=== PATIENT | female | born 1965 | race Caucasian/White ===

== ENCOUNTER 2017-09-23 07:03 | Emergency (ER) | payer MEDICARE, MEDICAID ==
[~2017-09-23] VITALS: Ht 170.2 cm; Wt 82.0 kg
[2017-09-23 16:01] LABS: BASOPHILS % 0.4 % (0.0-2.0); EOSINOPHILS % 0.6 % (0.0-5.0); HEMATOCRIT. 38.3 % (36.0-48.0); HEMOGLOBIN. 13.2 g/dL (12.0-16.0); LYMPHOCYTES % 23.9 % (20.0-50.0); MEAN CORPUSCULAR HEMOGLOBIN 28.6 pg (28.0-32.0); MEAN CORPUSCULAR VOLUME 83.1 fL (81.0-99.0); MEAN PLATELET VOLUME 7.6 fl (7.4-10.4); MONOCYTES % 8.2 % (2.0-8.0); NEUTROPHILS % 66.9 % (40.0-76.0); PLATELET 363 x1000/uL (130-400); RED BLOOD CELL COUNT 4.61 mill/uL (4.2-5.4); RED CELL DISTRIBUTION WIDTH 14.5 % (11.6-14.6)
[2017-09-23 16:09] LABS: CHLORIDE 103 mEq/L (98-107); ETHANOL BLOOD < 10 mg/dL
[2017-09-23] MEDS ORDERED: KETOROLAC 60MG/2ML VIAL IM STA (16:50)
[2017-09-23] MEDS ORDERED: LORAZEPAM 1MG TABLET PO ONE (17:00)
[2017-09-23] MEDS ORDERED: POTASSIUM CHLORIDE 20MEQ TABLET SR PO ONE (17:00)
[2017-09-23 17:35] LABS: CLARITY URINE CLOUDY (CLEAR); COLOR URINE DARK YELLOW (YELLOW); KETONES URINE 3+ (NEGATIVE); LEUKOCYTE ESTERASE URINE TRACE (NEGATIVE); NITRITE URINE NEGATIVE (NEGATIVE); OCCULT BLOOD URINE 1+ (NEGATIVE); PROTEIN URINE 1+ (NEGATIVE)
[2017-09-23 17:52] LABS: *AMPHETAMINES SCREEN URINE PRESUMTIVE POSITIVE (NEGATIVE); *BARBITURATES SCREEN URINE NEGATIVE (NEGATIVE); *BENZODIAZEPINES SCREEN URINE PRESUMTIVE POSITIVE (NEGATIVE); *COCAINE SCREEN URINE NEGATIVE (NEGATIVE); CANNABINOID URINE SCREEN NEGATIVE (NEGATIVE); METHADONE URINE SCREEN NEGATIVE (NEGATIVE); OPIATES URINE SCREEN NEGATIVE (NEGATIVE); PHENCYCLIDINE URINE SCREEN NEGATIVE (NEGATIVE)
[2017-09-23] MEDS ORDERED: LIDOCAINE HCL 1% 20ML VIAL (Pyxis) INJ INFIL ONE (19:00)
[2017-09-23] MEDS ORDERED: CEFTRIAXONE SODIUM 1 G/VIAL IM ONE (19:00)
[2017-09-23] MEDS ORDERED: HYDROCODONE/APAP 7.5/325MG 1 TAB TABLET PO ONE (20:00)
[2017-09-23] MEDS ORDERED: ACETAMINOPHEN 325MG TABLET PO STA (22:26)
[2017-09-23 22:36] VITALS: BP 15/92
== END 2017-09-23 22:37 | disposition home or self-care (01) ==
LOC: ER 07:17
DX: E87.6 Hypokalemia (principal); C90.00 Multiple myeloma not having achieved remission; I10 Essential (primary) hypertension; N39.0 Urinary tract infection, site not specified; M60.9 Myositis, unspecified; M79.7 Fibromyalgia; F41.9 Anxiety disorder, unspecified
CPT/HCPCS: 36415; 71045; 80048; 80305; 80307; 80329; 81003; 81025; 84484; 85025; 87804; 93005; 96372; 99285; G0482; J0696; J1885; J3490; 96375